=== PATIENT | female | born 1995 | race African-American/Black ===

== ENCOUNTER 2023-04-25 10:43 | Emergency (ER) | payer OTHER ==
[~2023-04-25] VITALS: Ht 172.7 cm; Wt 104.3 kg
[2023-04-25] MEDS ORDERED: AMOX-CLAV 875-1 EACH PO (13:47)
== END 2023-04-25 13:54 | disposition home or self-care (01) ==
LOC: ER 10:43
DX: J03.90 Acute tonsillitis, unspecified (principal)